=== PATIENT | female | born 1995 | race Caucasian/White ===

== ENCOUNTER 2022-11-14 09:24 | Outpatient (RCR) | payer OTHER, SELFPAY ==
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
[2022-11-14 10:38] VITALS: BP 119/75; PULSE 60
--- NOTE | 2022-11-14 11:10 | BH.SGPN.GN ---
Behaviors/Verbalizations/Mental Status: []Pt alert and oriented, casually dressed and groomed. Eye contact good. Motor activity restless. Speech within normal limits. Affect congruent-tearful. mood depressed. Thoughts linear, logical, no signs of hallucinations or delusions. Client Response/Progress/Benefit: v[]Pt responded well to session, contributing to discussion when prompted, and attentive throughout discussion. Pt identified a negative thought that has kept them stuck. Pt's thought was I can?t do anything right. Pt reported when they think this way, pt gets upset, cries, shuts down, moves slower, and does not try. Pt worked to reframe the thought by finding more rational, realistic ways to look at the thoughts and then processed within group setting. Pt reframed the thought to ?I can do something small instead of the big thing.? Pt was tearful throughout session, but pt was receptive to feedback and encouragement from peers. ?Pt appeared to benefit from practicing challenging negative thinking. Pt will continue IOP tx to prevent decompensation, increase distress tolerance skills, and maintain safety. ? Narrative Note: []
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
--- NOTE | 2022-11-14 13:04 | BH.DR.ITP ---
Initial Treatment Plan Patient Information Visit Information: ADMISSION DATE: EXPECTED LOS: 4-6 weeks Problems/Symptoms Problem #1:: Depression Symptom:: Sadness, hopelessness, worthlessness, anhedonia, biological disruption of weight and appetite, low energy, decreased concentration, passive thoughts of , passive suicidal ideation Problem #2:: Anxiety Symptom:: Worry, rumination, panic attacks
--- NOTE | 2022-11-14 13:38 | BH.COMM_ITS ---
Communication Note - Communication with Client Communication Note: Met with patient to complete initial paperwork. Complete [place] Suicide Screening. Moderate risk. Denies active SI, plan, or intent today. reports having SI within the last month, but no plan or intent within the last month. Pt reports history of one previous suicide attempt 8-9 years ago. Pt's protective factor is her family. Reports ability to maintain safety today. Future-oriented. Consulted with Dr. Mcgovern with plan to admit to IOP level of care with dx F33.2
--- NOTE | 2022-11-16 09:05 | BH.SGPN.GN ---
Behaviors/Verbalizations/Mental Status: [] Eye contact is good. Motor activity is appropriate. Appearance is casual. Speech is pressured. Mood is anxious. Affect is congruent. Thoughts are linear and logical. No evidence of psychosis. Reviewed daily check in sheet and pt reports 1/5 for suicidal ideations and 0/5 for intent. This is reduction from previous day. Client Response/Progress/Benefit: [] Pt was an active participant in group discussion. Attentive. Daily symptom tracker notes 4/5 for anxiety, 2/5 for depression, and 3/5 for irritability. Emotion for today is worried. Mental health wins included accompishing tasks and responsibilities. Elaborated on why this was a mental health win for her. She shared the impact that her anxiety, worry, and fear have on her and her relationships. Shared significant worry and anxiety about a friend driving to [place] and how this consumed her for several days. She was able to communicate her anxiety and friend agreed to postpone the trip. She was tearful and visibly shaking while discussin her anxiety and fear. Group provided support and encouragement which was beneficial. Will continue in IOP to prevent decompensation, stabilize mood, and increase healthy coping. Narrative Note: []
--- NOTE | 2022-11-16 11:10 | BH.SGPN.GN ---
Behaviors/Verbalizations/Mental Status: []Client alert and oriented, casually dressed and groomed. Eye contact good. Motor activity appropriate. Speech within normal limits. Affect congruent to topics being discussed, mood euthymic. Thoughts linear, logical, no signs of hallucinations or delusions. Client Response/Progress/Benefit: []Client an active participant, encouraging peers and contributed as group brainstormed ideas on how to cope with internal barriers that keep clients stuck from moving towards goals. Able to identify barriers to desired reality. Worked with group to identify strategies to help overcome barriers. Identified personal barriers to desired reality. Client wants to work on overcoming the barrier of forgetfulness by starting to journal. Benefited from group by identifying obstacles and solutions to desired reality. Client to continue IOP to increase use of healthy coping, challenge negative thoughts, and prevent decompensation.
--- NOTE | 2022-11-16 11:34 | BH.MDN ---
Multi-Disciplinary Note - Note 45-min Individual Time Started:: 10:20 Date: 11/16/22 Purpose of session/treatment goals addressed:: To gather information on pt's current stressors, symptoms, triggers, and tx goals. Another goal was to build rapport and provide emotional support. Eye Contact:: Fair Motor Activity:: Restless Appearance:: Casual Speech:: Tangential, Soft Mood:: Anxious, Depressed Affect:: Congruent - tearful throughout session Thoughts:: Circular, No evidence of hallucinations/delusions noted Staff Interventions:: thought challenging, psychoeducation on: - cognitive triangle and behavioral activation., CBT techniques, rapport building, strengths perspective, goal setting Client Response:: Pt responded well to session, open to meeting with therapist. Pt reports she has been struggling for a long time and feels like I should be better by now. Pt feels that group has been a positive experience so far, so pt is trying to stay hopeful that she could make progress. Pt shared she has very negative thoughts of herself and has not been enjoying much of anything. Pt stated her memory is poor and she often forgets what she is going to say. Pt reported this happened in process group today and then pt was self-critical. Pt receptive to therapist utilizing self-compassion techniques as well as helping pt identify strategies to help pt in process group. Pt identified treatment goals which included I want to be happy doing old things I used to enjoy. This things include taking pictures, making things, baking, and taking her dog for a walk. 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 Pt willing to write out a few goals on a daily habit tracker to work on over the weekend. Pt also receptive to psychoeducation on behavioral activation. Risks/Concerns:: Pt reports daily, passive SI that pt is able to control. Pt reports she would not kill herself because of her family. Progress Toward Goals/Plan:: Pt started IOP tx this week, so no progress to document. Pt presents depressed and tearful, but receptive to tx. Pt currently endorses crying spells, ruminations, a depressed mood, anhedonia, issues with memory, lack of concentration, passive SI, lack of energy and motivation, hopelessness, and worthlessness. Pt is receptive to goal setting and completed the daily habit tracker. Pt is currently on leave from work. Pt will continue IOP tx to prevent decompensation, increase healthy coping skills, and combat distorted thinking patterns. Time Stopped:: 11:05
--- NOTE | 2022-11-16 11:35 | BH.MTP_ITS ---
[facility] - Patient Information Program Physician:: Dr Yesika Alvarez Primary Therapist:: Gale LEON - Psychiatric Diagnoses Psychiatric Diagnoses:: Major depressive disorder, recurrent, severe without psychosis F 33.2; Borderline personality disorder; Generalized anxiety disorder; Marijuana use disorder; Alcohol use disorder Diagnosis Code(s):: F 33.2 - Estimated LOS Estimated LOS (in weeks):: 6 Problem/Goal #1 - Problem/Goal #1 Stated Goal:: Pt will reduce depressive symptoms, hopelessness, anhedonia, and passive SI due to Major Depressive Disorder through [facility] Services. Description of Barriers: Pt and her partner recently broke up and they were together for almost three years. Pt still lives with her partner which is a stressor. Pt has a strong family history of depression and her father has attempted suicide twice and this was traumatic for pt. Pt admits to utilizing alcohol to cope with stress/symptoms and pt also smokes marijuana daily, but has a medical card. Pt endorses very negative core beliefs of self. Functional Impact: Pt is a 27-year-old female with a history of MDD, HILLARY, and PTSD who was referred by her insurance company to [facility] for worsening depression and anxiety. Pt has had to go on FMLA from work due to her symptoms interfering with her functioning. Pt reports her symptoms are also impacting her ability to complete ADLs. Pt endorses a depressed mood, crying spells, poor concentration, issues with memory, lack of motivation, anhedonia, lack of energy, and passive SI. Pt reports limited benefit from outpatient counseling alone due to hopelessness and worthlessness. Goal Relevant Strengths/Supports: Pt is connected with outpatient psychiatry and counseling. Pt's dog is a protective factor and helps pt cope. Pt is employed and seems to like her job. - Objectives Objective #1 Stated Objective: Pt will learn and utilize 2-3 healthy coping strategies to better manage depressive symptoms and reduce DSM-5 symptoms for depression. Interventions: Through group and individual sessions, therapist will help pt identify triggers and warning signs of depression and emotional dysregulation including emotional, physical, and behavioral changes. Therapist will teach pt various coping skills to manage her symptoms. Therapist will use cognitive restructuring techniques and help pt gain awareness of negative thoughts that reinforce depressive cycles. Therapist will help pt incorporate mindfulness and emotional regulation skills when dealing with difficult situations. Discharge Criteria: Pt will have met this goal when she can report learning and using at least 2 coping skills to manage depressive symptoms and her DSM-5 scores for depression have decreased. Target Date: 12/26/22 Review Date: 12/05/22 Status: open Objective #2 Stated Objective: Pt will reduce anhedonia and improve mood through setting and accomplishing 2-3 behavioral activation goals a week. Interventions: Through group and individual sessions, pt will learn how to set small SMART goals to promote mood stability. Therapist will provide education on maintenance cycles for depression and help pt learn how to break unhealthy maintenance cycles Discharge Criteria: Pt will have accomplished this goal when can report accomplishing at least two behavioral activation goal a week. Target Date: 12/26/22 Review Date: 12/05/22 Status: open Problem/Goal #2 - Problem/Goal #2 Stated Goal:: Will reduce panic and anxiety through increasing emotional regulation and distress tolerance skills Description of Barriers: Pt and her partner recently broke up and they were together for almost three years. Pt still lives with her partner which is a stressor. Pt has a strong family history of depression and her father has attempted suicide twice and this was traumatic for pt. Pt admits to utilizing al cohol to cope with stress/symptoms and pt also smokes marijuana daily, but has a medical card. Pt endorses very negative core beliefs of self. Functional Impact: Pt is a 27-year-old female with a history of MDD, HILLARY, and PTSD who was referred by her insurance company to [facility] for worsening depression and anxiety. Pt has had to go on FMLA from work due to her symptoms interfering with her functioning. Pt reports her symptoms are also impacting her ability to complete ADLs. Pt endorses a depressed mood, crying spells, poor concentration, issues with memory, lack of motivation, anhedonia, lack of energy, and passive SI. Pt reports limited benefit from outpatient counseling alone due to hopelessness and worthlessness. Goal Relevant Strengths/Supports: Pt is connected with outpatient psychiatry and counseling. Pt's dog is a protective factor and helps pt cope. Pt is employed and seems to like her job. - Objectives Objective #1 Stated Objective: Pt will identify 2-3 anxiety triggers and 2 coping skills to use when feeling anxious to manage anxiety as shown by reducing DSM-5 scores for anxiety Interventions: Therapist will provide education on anxiety, avoidance behaviors, and maintenance cycles. Therapist will help pt explore personal symptoms and warning signs of anxiety. Therapist will teach pt coping skills to improve emotional regulation, mindfulness, and distress tolerance to help pt cope with anxiety in the moment. Discharge Criteria: Pt will have accomplished this goal when she can identify at least 2 triggers and report using 2 coping skills to manage anxiety. Additionally, pt will have accomplished this goal AEB reduction of DSM-5 scores for anxiety. Target Date: 12/26/22 Review Date: 12/05/22 Status: open Objective #2 Stated Objective: pt will identify 2-3 cognitive distortions that lead to rumination and learn 2-3 ways to manage these thoughts to better manage anxiety. Interventions: Therapist will provide education on the most common cognitive distortions and teach pt the connection between thoughts, emotions, and feelings. Therapist will assist pt in identifying, challenging, and replacing dysfunctional thoughts with positive, more realistic thoughts. Therapist will use CBT and DBT techniques to help pt gain awareness of thinking errors and learn how to more effectively handle negative thoughts. Discharge Criteria: Pt will have accomplished this goal when can identify at least 2 cognitive distortions and at least 2 coping skills to manage negative thoughts. Target Date: 12/26/22 Review Date: 12/05/22 Status: open
--- NOTE | 2022-11-16 11:35 | BH.PSA_ITS ---
Suicide Assessment Treatment Plan Recommendations
--- NOTE | 2022-11-16 11:35 | BH.PSA ---
Suicide Assessment Treatment Plan Recommendations
--- NOTE | 2022-11-19 09:05 | BH.SGPN.GN ---
Behaviors/Verbalizations/Mental Status: [] Eye contact poor. Motor activity appropriate. Speech within normal limits. Affect constricted, mood anxious and euthymic. Thoughts linear, logical, no signs of hallucinations or delusions. Reviewed client?s symptom tracker, no risk for suicidal ideation, plan, or intent as of 11/19/2022. Client Response/Progress/Benefit: [] Client responded well to session, attentive and willing to process with group. Identified current mental health wins as going out with friends this weekend and getting social needs met. Client described herself as feeling very stressed due to having car issues and not knowing how she is going to get to places she needs to get too including IOP program. Discussed frustration with friends as well. Client appeared to benefit from group support and encouragement, client was very encouraging towards other group members well with providing input. Recommended continued IOP tx to continue to increase overall functioning, promote mood stability, as well as prevent decompensation. Narrative Note: []
--- NOTE | 2022-11-19 10:10 | BH.SGPN.GN ---
Behaviors/Verbalizations/Mental Status: [] Eye contact is good. Motor activity is appropriate. Appearance is casual. Speech is Appropriate. Mood is anxious. Affect is congurent. Thoughts are linear and logical. No evidence of psychosis. Client Response/Progress/Benefit: [] Pt was an active participant in group discussion. Attentive during psychoeducation on fixed mindset. Participated during interactive discussions in which group worked together to define 'fixed mindset'. Descriptors identified included; only one way of seeing things, absolute thinking, not compromising, and believing that nothing could change. Participated in further discussion on the negatives that result from a 'fixed' mindset which are; emotional dysregulation, decreased confidence in oneself, feeling 'stuck', feelings of worthlessness, hopelessness, and 'giving up'. Benefited from increased understanding of 'fixed' mindset and its impact on mental health. Will continue in IOP to maintain safety, prevent decompensation, increase healthy coping skills, and to improve functioning to return to work. Narrative Note: []
--- NOTE | 2022-11-19 11:10 | BH.SGPN.GN ---
Behaviors/Verbalizations/Mental Status: []Pt alert and oriented, neatly dressed and groomed. Eye contact good. Motor activity appropriate. Speech within normal limits. Affect congruent-tearful at times, mood depressed. Thoughts linear, logical, no signs of hallucinations or delusions. Client Response/Progress/Benefit: []Pt engaged during activity and discussion AEB providing some input, connecting with peers, as well as taking notes throughout. Pt did well to engage as group worked on identifying characteristics and benefits of adopting a growth mindset. Worked with fellow participants in reframing the example fixed thoughts into growth mindset thoughts. Reframed personal fixed thought of ?something bad is always going to happen? with growth mindset thought of ?sometimes good things seem bad and occasionally good things happen.? Benefitted from discussing benefits of growth mindset and brainstorming strategies for prompting growth-mindset. Pt shared her core beliefs make it hard for pt to reframe her fixed thoughts. Pt did well in small group to challenge own thoughts and help peers. Pt will continue IOP tx to prevent decompensation, combat distortions, and improve daily functioning. ?? Narrative Note: []
--- NOTE | 2022-11-20 09:05 | BH.SGPN.GN ---
Behaviors/Verbalizations/Mental Status: []Pt alert and oriented, casually dressed and groomed. Eye contact good. Motor activity appropriate. Speech within normal limits. Affect congruent, mood depressed. Thoughts linear, logical, no signs of hallucinations or delusions. Reviewed pt?s symptom tracker, no risk for suicidal ideation, plan, or intent as of 11/20/22 Client Response/Progress/Benefit: []Pt responded well to session, receptive to group feedback. Pt reports feeling spacey and exhausted this morning as she continues to endorse severe depressive. Pt stated she is anxious about what will happen with work as pt's short-term disability ends soon. Pt plans to talk to her sales and marketing representative soon which should help reduce some anxiety. Pt's mental health wins today include going for a walk with her dog and getting to IOP early which helped pt feel less stressed. Pt appeared to benefit from connecting with peers and gaining supportive feedback. Pt will continue IOP tx to prevent further decompensation, increase motivation, and reduce negative thinking patterns. Narrative Note: []
--- NOTE | 2022-11-20 10:12 | BH.SGPN.GN ---
Behaviors/Verbalizations/Mental Status: []Client alert and oriented, casually dressed and groomed. Eye contact good. Motor activity appropriate. Speech within normal limits. Affect congruent, mood anxious and dysthymic. Thoughts linear, logical, no signs of hallucinations or delusions. Client Response/Progress/Benefit: []Client receptive of session, actively engaged throughout AEB taking notes and provided input and examples to discussion. Appeared to connect with group topic of cognitive distortions and the impact of thought patterns on mental health, coping behaviors, and relationships. Reflected that she personally tends to struggle with distortions of all or nothing thinking and mind reading. Noting this has resulted in unrealistic expectations of self and others in the past. Client appeared to benefit from gaining insight on distorted thinking patterns and how this impacts overall mental health. Progress noted in client report of improved insight and ability to combat distortions with alternative positive thoughts. Will continue IOP tx to reduce anxiety and depression, continue to promote healthy decision making, and increase overall functioning. Narrative Note: []
--- NOTE | 2022-11-20 11:15 | BH.SGPN.GN ---
Behaviors/Verbalizations/Mental Status: []Eye contact is fair to good. Motor activity is appropriate. Appearance is casual. Speech is WNL. Mood is anxious and dysthymic. Affect is congruent. Thoughts are linear and logical. No evidence of psychosis. Client Response/Progress/Benefit: []Pt engaged participant AEB providing input during small group discussion and engaging in activity. Activity involved working with peers to answer questions related to psychoeducation on cognitive distortions and practicing reframing distorted thoughts. Pt collaborated with the group to determine the answers. Identified cognitive distortions struggles with the most as all or nothing thinking, jumping to conclusions, and personalization. Able to connect impact distortions has on her mental health. Benefited from rehearsing ways to challenge/reframe cognitive distortions and by gaining increased insight into examples/definitions of 10 most common cognitive distortions. Will continue in IOP to increase healthy coping, improve emotion regulation, and prevent decompensation.
--- NOTE | 2022-11-23 11:32 | BH.COMM ---
Communication Note - Communication with Client Communication Note: Pt did not get to meet individually with her IOP therapist this week due to leaving early on 11/21/22 (illness) and not being able to come any days later in the week. Pt did have outpatient psychiatry and counseling appointments yesterday, 11/22/22. Pt is scheduled to attend IOP on 11/27/22.
--- NOTE | 2022-11-27 09:05 | BH.SGPN.GN ---
Behaviors/Verbalizations/Mental Status: []Eye contact good, casually dressed, motor activity appropriate, speech normal rate and tone, mood depressed and anxious, congruent affect, thoughts linear and intact, no evidence of delusions or hallucinations. Reviewed pt's symptom tracker, pt suicidal ideation within established baseline, denies any plan or intent. Future oriented. Client Response/Progress/Benefit: []Pt responded well to session, attentive and willing to process with group. Identified current mental health wins as challenging themself to use opposite action and follow through with eating three meals a day, despite anxiety impacting pt appetite. Additional win noted as making the decision to revisit an old friendship. Shared feeling excited about the possibility of expanding her support network, but anxious about it as well. Identified this as her stressor and appeared to benefit from supportive feedback and suggestions for discussing boundaries and expectations provided by the group. Pt appeared to benefit from group support and encouragement. Continues to display progress in use of thought challenging and willingness to learn new coping skills. Recommended continued IOP tx to continue to improve anxiety management, promote mood stability, as well as prevent decompensation. Narrative Note: []
--- NOTE | 2022-11-27 10:10 | BH.SGPN.GN ---
Behaviors/Verbalizations/Mental Status: []Pt alert and oriented, neatly dressed and groomed. Eye contact good. Motor activity appropriate. Speech within normal limits. Affect congruent, mood anxious and depressed. Thoughts linear, logical, no signs of hallucinations or delusions. Client Response/Progress/Benefit: []Pt was an active participant in group discussions and activities. Attentive during psychoeducation. Pt engaged during interactive discussion in which the group defined self-care and discussed its benefits. ?Worked with peers in a small group to identify myths related to self-care which included; Self-care is expensive, self-care is selfish, not everyone deserves self-care, self-care means a person is weak, and self-care takes up too much time. Pt shared she is good with some areas of self-care, but connected with pers that there are a lot of barriers keeping her from self-care. Pt participated in small groups where they worked to bust these self-care myths. Benefited from increased awareness of self-care, its benefits, and the consequences of not utilizing self-care strategies. Will continue IOP tx to promote mood stability, reduce negative self-talk, and improve daily functioning. ?? Narrative Note: []
--- NOTE | 2022-11-27 11:10 | BH.SGPN.GN ---
Behaviors/Verbalizations/Mental Status: []Pt alert and oriented, casually dressed and groomed. Eye contact good. Motor activity appropriate. Speech within normal limits. Affect constricted, mood dysthymic. Thoughts linear, logical, no signs of hallucinations or delusions. Client Response/Progress/Benefit: []Pt engaged participant AEB completing self-assessment worksheet and providing input throughout discussion. Participated in group discussion on the various areas of self-care. Pt completed worksheet identifying current self-care practices and what self-care activities pt wants to start using. Pt selected physical self-care to begin practicing more consistently. Pt plans to do this by starting to stretch and exercise more throughout her week. Appeared to benefit from completing the self-care evaluation and gaining insights into current self-care practices, as well as identifying areas in which pt would like to improve upon.?Pt is to continue IOP to continue use of skills, challenge distorted thoughts, and prevent decompensation.
--- NOTE | 2022-11-27 13:59 | BH.MDN ---
Multi-Disciplinary Note - Note 45-min Individual Time Started:: 12:15 Date: 11/27/22 Purpose of session/treatment goals addressed:: To work on goal #1 of pt's tx plan. Eye Contact:: Good Motor Activity:: Restless Appearance:: Casual Speech:: Soft Mood:: Anxious, Depressed Affect:: Flat - tearful Thoughts:: Circular, No evidence of hallucinations/delusions noted Staff Interventions:: thought challenging, psychoeducation on: - behavioral activation, CBT techniques, mindfulness skills - Reviewed calming skills, strengths perspective, goal setting Client Response:: Pt responded well to session, open to meeting with therapist. Pt reports she is not doing well as pt had a lot of stressors over the weekend. Pt drove to [place] with her ex-boyfriend/roommate and the drive itself was stressful, but pt was also anxious about being around his family. Pt shared she practiced calming coping skills while she was there as pt felt overwhelmed most of the time. Pt stated his family is kind and to pt, but pt struggled to accept this due to depressive symptoms. Pt shared she has accomplished some of her goals like doing laundry and she has been stretching. Pt is receptive to identifying at least one thing she deserves credit for a day as pt struggles with minimizing and negative self-talk. Pt will also take her dog for a walk daily and continue eating at least once a day. Pt shared one of her biggest stressors today is that one of her old friends has reached back out to pt, but pt feels that this friend does not value pt or put energy into their relationship. Pt has set firm boundaries in the past, but pt offered to spend time with them today and they told me to hang out with my dog. Pt was tearful and appeared to benefit from processing and getting emotional release. Pt plans to talk with another close friend today and take her dog on a walk to cope. Pt also used to enjoy taking pictures and pt set a goal to try and take one picture a day. Risks/Concerns:: Pt reports 2/5 for thoughts of suicide and 0/5 for intent today. Pt denies any active SI, plan, or intent. Pt is future oriented and her dog is her protective factor. Progress Toward Goals/Plan:: Pt's progress is mild as pt reports her symptoms have not reduced much since admission. However, pt does report benefitting from connecting with peers and gaining skills in IOP. Pt missed a day last week, but overall her attendance is good. Pt continues to endorse crying spells, hopelessness, worthlessness, ruminations, lack of motivation, anhedonia, and passive SI. Pt is receptive to goal setting and she continues to work on her daily habit tracker. Pt will continue IOP tx to prevent decompensation, improve daily functioning, and increase self-compassion. Time Stopped:: 13:00
--- NOTE | 2022-11-28 09:05 | BH.SGPN.GN ---
Behaviors/Verbalizations/Mental Status: []Eye contact good, casually dressed, motor activity appropriate, speech normal rate and tone, mood depressed and anxious, congruent affect, thoughts linear and intact, no evidence of delusions or hallucinations. Reviewed pt's symptom tracker, pt suicidal ideation within established baseline, denies any plan or intent. Future oriented. Client Response/Progress/Benefit: []Pt responded well to session, attentive and willing to process with group. Identified current mental health wins as spending time with a friend yesterday. Shared this helped to improve her overall mood. Additional win noted as continuing to work through a stressor with another friend. However, noted this is also a stressor as pt has been struggling with doubting that her friend is not going to change their mind and end the relationship or cardiac specialist pt. Responded well to and appeared to benefit from supportive feedback and suggestions provided by the group. Progress in reduced isolation and improved mood. Recommended continued IOP tx to continue to improve self-care, promote mood stability, as well as prevent decompensation. Narrative Note: []
--- NOTE | 2022-11-28 10:10 | BH.SGPN.GN ---
Behaviors/Verbalizations/Mental Status: [] Client alert and oriented, casually dressed and groomed. Eye contact good. Motor activity restless. Speech within normal limits. Affect constricted, mood euthymic. Thoughts linear, logical, no signs of hallucinations or delusions. Client Response/Progress/Benefit: [] Client responded well to session AEB taking notes throughout and listening attentively to others. Client was attentive throughout group activity discussing famous individuals and how they overcame failure to be successful. Client helped group identify how fear of failure can impact mental health and relationships. Client discussed how opinions of others can shape how we view failure. Group together identified how fear of failure leads to over-obsessing, not trying, and lack of confidence. Client participated in experiential activity, working with group members to problem solve. Client was encouraging to group members throughout activity. Appeared to benefit from increased knowledge of fear of failure. Will continue IOP tx to improve self care, reduce distorted thinking patterns, and prevent decompensation. Narrative Note: []
--- NOTE | 2022-11-28 11:10 | BH.SGPN.GN ---
Behaviors/Verbalizations/Mental Status: [] Client alert and oriented, casually dressed and groomed. Eye contact good. Motor activity restless. Speech within normal limits. Affect congruent, mood euthymic. Thoughts linear, logical, no signs of hallucinations or delusions. Client Response/Progress/Benefit: [] Client responded well to session, engaged in the experiential activity and attentive throughout group processing. Client reported fear of failure has kept client from good relationships and going to school. Client completed fear of failure worksheet and was able to identify thoughts and behaviors that reinforce personal fear of failure including negative thought patterns, continual loss, and believing the negative things others say about them. Client participated in small group discussion regarding strategies to overcome fear of failure. Identified wanting to work on asking for help and setting smart goals. Appeared to benefit from increased knowledge of strategies to combat fear of failure and gaining self-awareness. Client will continue IOP tx to promote gains in reduced depressive symptoms and to reduce anxiety and avoidance. Narrative Note: []
--- NOTE | 2022-11-30 09:00 | BH.SGPN.GN ---
Behaviors/Verbalizations/Mental Status: []Pt alert and oriented, casually dressed and groomed. Eye contact fair. Motor activity appropriate. Speech within normal limits. Affect flat-tearful, mood anxious and dysthymic. Thoughts linear, logical, no signs of hallucinations or delusions. Reviewed pt?s symptom tracker, no risk for suicidal ideation, plan, or intent as of 11/30/22 Client Response/Progress/Benefit: []Pt responded well to session, attentive and receptive to feedback. Pt reports feeling panicked and irritable this morning as pt's FMLA is about to run out and pt does not feel ready to return to work. Discussed what pt can do to help with this such as contacting her policy services representative. Pt shared her wins today include going for two walks this week, spending time outside, and being with her dog and a friend. Pt's mood continues to be depressed and pt report her mind won't shut off. Pt has made limited progress and can benefit from ongoing IOP level of care to prevent further decompensation. Narrative Note: []
--- NOTE | 2022-11-30 10:00 | BH.SGPN.GN ---
Behaviors/Verbalizations/Mental Status: [] Client alert and oriented, neatly dressed and groomed. Eye contact good. Motor activity appropriate. Speech within normal limits. Affect congruent, mood euthymic. Thoughts linear, logical, no signs of hallucinations or delusions. Client Response/Progress/Benefit: [ ] Client responded well to session, attentive during psychoeducation on SMART goals (Specific, Measurable, Achievable, Realistic, and Time-bound) and engaged in group experiential activity. Active participant during interactive discussion with peers in which they worked together to define what a goal is and the benefits of having goals. Group identified benefits as; giving a sense of purpose, improving motivation, and helping reduce negative mental health symptoms. Participated in interactive discussion in which group identified barriers to setting goals and following through with goals. Barriers included not feeling worthy, negative self-talk, time, and cognitive distortions such as all or nothing thinking. Client discussed personal struggle with staying focused on her goals. Benefited from increased awareness of benefits and strategies for goal-setting. Will continue in IOP tx to improve mood stability, reduce negative thinking patterns, and improve daily functioning. Narrative Note: []
--- NOTE | 2022-11-30 11:10 | BH.SGPN.GN ---
Behaviors/Verbalizations/Mental Status: [] Client alert and oriented, casually dressed, appropriately groomed. Eye contact good. Motor activity appropriate. Speech within normal limits. Affect congruent, mood euthymic. Thoughts linear, logical, no signs of hallucinations or delusions. Client Response/Progress/Benefit: [] Client was engaged during discussion and willing to complete the worksheet challenging them to develop a personal SMART goal. Client chose the goal of cleaning kitchen this week. Client stated this will benefit them by helping her feel organized. Client identified barriers which included distraction and time. Identified solutions as asking a friend to help them focus and not spending too much time at other places. Client receptive to identifying solutions for these barriers and willing to begin working on this goal. Benefited from this group by developing a short-term SMART goal related to mental health. Will continue IOP tx to increase healthy coping, improve daily functioning, and increase self care. Narrative Note: []
--- NOTE | 2022-12-03 09:05 | BH.SGPN.GN ---
Behaviors/Verbalizations/Mental Status: [] Eye contact is good. Motor activity is appropriate. Appearance is casual. Speech is Appropriate. Mood is depressed. Affect is congruent. Thoughts are linear and logical. No evidence of psychosis. Reviewed daily check in sheet and pt reports 2/5 for suicidal thoughts and 0/5 for intent. This has been baseline for patient. Client Response/Progress/Benefit: [] Pt was an active participant in group discussion. Attentive. Daily symptom tracker notes 3/5 for depression/anxiety. Reports 2/5 for self-harm urges. Mental health win was I cleaned some this weekend. Tearful throughout her check-in reporting that she had a panic attack while attending a [employer] with her mother. Tearful and share briefly her struggles with intrusive thoughts. The thoughts that led to anxiety revolved around not being safe at the event. She identified the panic, left the setting that was causing the anxiety, went outside to utilize coping skills, and then returned. She views having these intrusive thoughts and panic as a failure. Group attempted to reframe and pointed out the she managed the panic, utilized skills, and returned. Reports being overwhelmed and frustrated with her internal struggles and how these can impact her throughout the weekend. Benefited from group feedback, support, and attempts to reframe/challenge her thoughts. Will continue in IOP to maintain safety, prevent decompensation, and decrease intrusive thoughts to improve functioning. Narrative Note: []
--- NOTE | 2022-12-03 10:20 | BH.SGPN.GN ---
Behaviors/Verbalizations/Mental Status: []Pt alert and oriented, casually dressed and groomed. Eye contact fair. Motor activity appropriate. Speech within normal limits. Affect congruent, mood anxious. Thoughts linear, logical, no signs of hallucinations or delusions. Client Response/Progress/Benefit: []Pt was an active participant AEB contributing to discussion, taking notes, and engaging in group activity. Connected with the topic of pitfalls and listened to group discussion on barriers that prevent from choosing a healthier path to mental wellness. Group worked together to identify examples of personal pitfalls and pt identified theirs as taking on too much, lack of awareness, apathy, and emotion dysregulation.? Pt benefited from group as pt learned to better identify potential barriers to improving mental health symptoms. Pt will continue IOP tx to decrease anxiety, increase healthy coping, and prevent decompensation.
--- NOTE | 2022-12-03 11:20 | BH.SGPN.GN ---
Behaviors/Verbalizations/Mental Status: []Pt alert and oriented, neatly dressed and groomed. Eye contact good. Motor activity appropriate. Speech within normal limits. Affect congruent, mood anxious and depressed. Thoughts linear, logical, no signs of hallucinations or delusions. Client Response/Progress/Benefit: []Pt receptive of session, engaged throughout AEB actively listening and contributing to discussion, as well as taking notes.? Pt participated in the experiential activity and did well to communicate ideas with peers and manage emotions. Pt and group processed how the emotions and perspective of the group after the break positively impacted pt. Group worked together to identify different coping skills to help manage pitfalls. Pt identified pitfalls they struggle with and shared wanting to work on pitfall of all or nothing thinking by breaking down her cleaning tasks and continuing to give herself credit. Benefited from identifying personal pitfalls and strategies to overcome these pitfalls. Pt continues to struggle with intrusive thoughts and negative self-talk. Will continue IOP tx to prevent decompensation, improve distress tolerance, and increase self-compassion. Narrative Note: []
--- NOTE | 2022-12-03 14:05 | BH.MDN ---
Multi-Disciplinary Note - Note 60-min Individual Time Started:: 12:20 Date: 12/03/22 Purpose of session/treatment goals addressed:: To work on goal #2 of pt's tx plan and to review progress/barriers since admission. Eye Contact:: Fair Motor Activity:: Restless Appearance:: Casual Speech:: Tangential, Soft Mood:: Anxious, Dysthymic Affect:: Congruent - tearful throughout session Thoughts:: Racing, Circular, No evidence of hallucinations/delusions noted Staff Interventions:: psychoeducation on: - intrusive thoughts, CBT techniques, mindfulness skills, strengths perspective, reviewed DSM-5, goal setting Client Response:: Pt responded well to session, open to meeting with therapist. Pt shared she continues to feel depressed and anxious, especially with her short-term disability ending. 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 Pt recognizes that she is not ready to return to work as pt continues to experience crying spells, issues with sleep, intrusive thoughts, ruminations, lack of motivation, and suicidal ideations. Pt receptive to learning about intrusive thoughts and pt connected with these. Discussed how pt can began to manage her intrusive thoughts and why thoughts get sticky. Pt learned about Delay, Distract, Decide to reduce safety behaviors and to help pt sit with the uncomfortable instead of immediately act. Also discussed strategies pt could use to help improve concentration and productivity at home. Pt shared she is unable to accomplish tasks because she gets distracted and only does parts of projects. Pt reminded to utilize self-compassion and cater to her strengths. Pt will try a method discussed in session to help her be more productive. Pt encouraged to continue giving herself credit to combat all or nothing thinking patterns. Risks/Concerns:: Pt reports she is having intrusive thoughts more frequently than she originally reported and these are suicidal at times. Pt has intrusive thoughts of what if I just ran into a semi but pt does not want to act on these thoughts. Pt denies any active SI, plan, or intent. Pt reports her family is her protective factor. Progress Toward Goals/Plan:: Pt is making progress towards her tx goals in some areas AEB her DSM-5 reduction in anxiety and anger. However, pt's depression has increased since admission per the DSM-5 and pt continues to struggle with mood instability. Pt also reports having intrusive thoughts that keep her up at night and sometimes are suicidal in nature. Pt is functioning at her baseline and would not be ready to return to work. Pt will continue IOP tx to prevent decompensation, increase distress tolerance skills, and increase application of healthy coping skills. Time Stopped:: 13:15
--- NOTE | 2022-12-03 14:38 | BH.MTP_ITS ---
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 Pt contributes well during individual sessions and actively contributes during group sessions. Pt reports using distraction and grounding skills consistently, however, pt admits she struggles with applying the thought- based coping skills. Status of Current Problems and Symptoms: Pt's stressors and symptoms are ongoing. Pt's biggest stressors right now are returning to work and her living situation. Pt is still experiencing frequent crying spells, passive suicidal ideations, issues with sleep, anhedonia, hopelessness, and intrusive thinking. Pt's functioning at home is slightly improved, but pt is worried about her ability to get ready for work and be productive as her concentration is still poor. Problem #1 Problem Name:: Depression, hopelessness, lack of motivation, crying spells, SI Status of Goals:: Objective 1- not complete. Pt's DSM-5 scores for depression have increased by one point since admission. Pt reports ongoing stressors of work and her living situation are impacting her mood. Pt can identify healthy coping skills, but pt is struggling with implementing thought challenging techni ques. Objective 2-complete with ongoing work encouraged. Pt has accomplished goals with laundry and going for more walks. Team Recommendations:: Treatment tx encourages pt to continue working on this treatment goal as pt continues to experience frequent crying spells, passive SI, hopelessness, and anhedonia. Pt has accomplished some of her goals for cleaning and pt wants to continue working on this. Pt also encouraged to reduce marijuana use. Problem #2 Problem Name:: Anxiety, avoidance, and intrusive thoughts Status of Goals:: Objective 1- in progress. Pt's DMS-5 scores for anxiety have decreased by 38% since admission, but pt's scores for OCD symptoms have not decreased. Pt reports using grounding and distraction coping skills consistently, but pt is struggling with managing her intrusive thoughts. Objective 2- in progress. Pt is learning about managing intrusive thoughts by identifying them and reducing the credit she gives them. Pt is also working on reducing safety behaviors. Team Recommendations:: Treatment tx recommends that pt continue working on this goal as pt reports her intrusive and racing thoughts have not decreased since admission. Pt has been encouraged to work on developing a routine to help with pt's anxiety about returning to work and pt is working on managing her intrusive thoughts. [facility] psychiatrist will meet with pt on 12/19/22 to discuss alternative medications and pt is encouraged to reduce her marijuana use.
--- NOTE | 2022-12-04 09:05 | BH.SGPN.GN ---
Behaviors/Verbalizations/Mental Status: []Pt alert and oriented, casually dressed and groomed. Eye contact good. Motor activity appropriate. Speech within normal limits. Affect congruent-tearful, mood depressed. Thoughts linear, logical, no signs of hallucinations or delusions. Reviewed pt?s symptom tracker, no risk for suicidal ideation, plan, or intent as of 12/04/22 Client Response/Progress/Benefit: []Pt responded well to session, receptive to feedback from peers. Pt reports feeling stressed and tired this morning. Pt stated her mood has not really improved and pt continues to struggle with constant anxiety and negative thinking. Pt shared she is sending a letter to to extend her FMLA. Pt shared her wins today include going for a walk yesterday with her dog and not engaging in safety behaviors. Pt appeared to benefit from group feedback and encouragement. Pt will continue IOP tx to prevent decompensation, improve daily functioning, and reduce negative thinking patterns. Narrative Note: []
--- NOTE | 2022-12-04 10:15 | BH.SGPN.GN ---
Behaviors/Verbalizations/Mental Status: []Client alert and oriented, casually dressed and groomed. Eye contact good. Motor activity appropriate. Speech within normal limits. Affect congruent to topics being discussed, mood anxious. Thoughts linear, logical, no signs of hallucinations or delusions. Client Response/Progress/Benefit: []Pt engaged in session AEB listening attentively to others and providing insight to group discussion. Pt engaged in activity, able to connect how it can be uncomfortable when things are out of one?s own control. Pt worked with group to identify what things in life can be hard to accept. Group identified things hard to accept as: of a loved one, body image, loss of relationship, mental health diagnosis, other?s behaviors, and past decisions. Pt worked on identifying what personal things are hard to accept for herself, sharing things outside her control and other?s behaviors/emotions are things she struggles with accepting. Pt seemed to benefit from increased awareness of importance of acceptance. Pt to continue IOP to improve confidence, increase ability to manage sx of anxiety, and prevent decompensation. Narrative Note: []
--- NOTE | 2022-12-04 11:15 | BH.SGPN.GN ---
Behaviors/Verbalizations/Mental Status: []Pt alert and oriented, casually dressed and groomed. Eye contact fair. Motor activity appropriate. Speech within normal limits. Affect congruent, mood anxious. Thoughts linear, logical, no signs of hallucinations or delusions. Client Response/Progress/Benefit: []Pt responded well to session, engaged and providing examples. Pt engaged as group continued discussion on acceptance and how lack of acceptance can impact mental health. Pt and peers identified what makes acceptance challenging and pt completed a self-reflection exercise on what is hard to accept in pt's life. Pt accepted in discussion to process how not accepting can cause more harm. Group identified strategies to increase acceptance. Pt appeared to benefit from gaining insight and strategies to increase acceptance. Pt will continue IOP tx to increase consistent use of healthy coping, challenge distortions, and prevent decompensation.
--- NOTE | 2022-12-06 09:02 | BH.SGPN.GN ---
Behaviors/Verbalizations/Mental Status: []Eye contact is good. Motor activity is appropriate. Appearance is casual. Speech is Appropriate. Mood is sad. Affect is congruent. Thoughts are linear and logical. No evidence of psychosis. Reviewed daily check in sheet and pt reports SI slightly elevated compared with typical baseline, denies intent or plan. Willing to check-in with individual therapist. Client Response/Progress/Benefit: []Pt responded well to session, attentive and willing to process with group. Pt reports feeling hopeless and stressed this morning despite making several strides towards improving her mental health. Noted struggling to feel she has a ?sparkle? inside anymore. Benefited from validation, supportive feedback, and encouragement of the group. Shared plans to hangout with an old friend which she is looking forward to, as well as setting aside time for self-care via going for a walk this afternoon. Pt will continue IOP tx to prevent decompensation, improve daily functioning, and increase mood stability. Narrative Note: []
--- NOTE | 2022-12-06 10:00 | BH.SGPN.GN ---
Behaviors/Verbalizations/Mental Status: [] Eye contact is good. Motor activity is appropriate. Appearance is casual. Speech is Appropriate. Mood is anxious. Affect is congruent. Thoughts are linear and logical. No evidence of psychosis Client Response/Progress/Benefit: [] Pt was an active participant in group discussions. Attentive during psychoeducation on Conflict Styles. Participated during interactive discussion amongst group members in which they discussed perspective on conflict which was reported to be overall negative (yelling, shutting down, being mean, war, arguments, etc). Therapist challenged pt on reasons we may benefit from conflict and pt along with peers identified several benefits which included; to obtain resolution to an issue, to set boundaries, for one's safety, to improve relationships, to address concerns, and for growth. Engaged with peers during small group assignment in which they identified positives and negatives to each conflict style. Benefited from increased understanding of conflict and ways individuals manage conflict. Will continue in IOP to prevent decompensation, maintain safety, and to decrease intrusive thoughts. Narrative Note: []
--- NOTE | 2022-12-06 11:10 | BH.SGPN.GN ---
Behaviors/Verbalizations/Mental Status: []Pt alert and oriented, neatly dressed and groomed. Eye contact good. Motor activity appropriate. Speech within normal limits. Affect congruent, mood depressed. Thoughts linear, logical, no signs of hallucinations or delusions. Client Response/Progress/Benefit: []Pt engaged in session AEB contributing to discussion and engaging in activity. Pt did well to review current conflict styles of accommodating and competing and their impact on pt?s mental health. Attentive and taking notes during discussion on strategies for more effectively managing conflict in personal life.? Pt participated in activity and did well to talk through choices with peers. Pt given handout on fair fighting rules and identified that they want to work on asking herself why she is upset before discussing issues and expressing her feelings with words. Appeared to benefit from gaining strategies to help pt better manage conflict. Will continue IOP tx to prevent decompensation, improve daily functioning, and increase emotional regulation skills. Narrative Note: []
== END 2022-12-09 23:59 ==
LOC: BHIOP 09:24
PROVIDERS: Referring Provider Psychiatry & Neurology Psychiatry; Visit Provider Psychiatry & Neurology Psychiatry
DX: F33.2 Major depressive disorder, recurrent severe without psychotic features (principal); F60.3 Borderline personality disorder; F41.1 Generalized anxiety disorder; F12.90 Cannabis use, unspecified, uncomplicated; F10.90 Alcohol use, unspecified, uncomplicated
CPT/HCPCS: S9480; 90834; 90837; 90853

== ENCOUNTER 2022-12-10 08:22 | Outpatient (RCR) | payer OTHER, SELFPAY ==
[2022-12-10 00:48] VITALS: BP 119/75; PULSE 60
--- NOTE | 2022-12-10 09:00 | BH.SGPN.GN ---
Behaviors/Verbalizations/Mental Status: []Eye contact is fair to good. Motor activity is appropriate. Appearance is casual. Speech is Appropriate. Mood is depressed and anxious. Affect is congruent. Thoughts are linear and logical. No evidence of psychosis. Reviewed daily check in sheet and reports SI as 2/5, denies plan, or intent as of this date. Will meet with individual therapist today. Client Response/Progress/Benefit: []Pt responded well to session, attentive and willing to process with group. Pt reports feeling ?stressed and anxious? this morning. Shared this is related to not getting enough sleep as she was up late sewing her comforter. Went on to explain this is related to her ongoing stressor which is pt?s ex, whom she lives with, has difficulties in communicating and respecting pt?s boundaries. Pt was receptive of group suggestions on having difficult conversations about boundary setting. Did well to identify current mental health wins which included following through with plans to hangout with a friend yesterday, as well as making plans to do so again today. Benefited from supportive feedback structure of the group. Pt will continue IOP tx to prevent decompensation, improve mood stability, and promote healthy communication and boundary setting skills. Narrative Note: []
--- NOTE | 2022-12-10 10:00 | BH.SGPN.GN ---
Behaviors/Verbalizations/Mental Status: []Pt alert and oriented, casually dressed and groomed. Eye contact good. Motor activity appropriate. Speech within normal limits. Affect congruent, mood anxious. Thoughts linear, logical, no signs of hallucinations or delusions. Client Response/Progress/Benefit: []Pt was an active participant in group discussion and experiential activity. Attentive during psychoeducation on possible causes to developing and maintain unhealthy coping skills which can impact mental health. Pt participated in interactive discussion identifying common unhealthy coping skills. client noted sleeping and impulsive spending as unhealthy skills that can lead to more problems. Able to make connections between experiential activity and importance of having a solid base of internal and external coping skills. Benefited from increased awareness of internal and external coping skills and identifying unhealthy coping skills. Will continue in IOP to decrease intrusive thoughts, increase use of healthy skills, and prevent decompensation.
--- NOTE | 2022-12-10 11:05 | BH.SGPN.GN ---
Behaviors/Verbalizations/Mental Status: []Pt alert and oriented, casually dressed and groomed. Eye contact good. Motor activity appropriate. Speech within normal limits. Affect congruent, mood anxious. Thoughts linear, logical, no signs of hallucinations or delusions Client Response/Progress/Benefit: []Pt responded well to session, taking notes and contributing. Group discussed the different categories of coping skills which included distraction, emotional release, grounding, self-love, and thought challenging.? Pt participated in creating a coping skills ?menu? from the five categories of coping skills. Pt's coping skill menu included: arts and crafts, baking, guided meditation, crying, using affirmations and reminder sticky notes, and asking herself ?would I say this to someone I love?? Appeared to benefit from increasing repertoire of healthy coping skills. Will continue IOP tx to reduce negative thinking patterns, improve daily functioning, and increase motivation. ? Narrative Note: []
--- NOTE | 2022-12-10 14:11 | BH.MDN ---
Multi-Disciplinary Note - Note 60-min Individual Time Started:: 12:10 Date: 12/10/22 Purpose of session/treatment goals addressed:: To work on goal #1 of pt's treatment plan. Another goal was to practice calming skills. Eye Contact:: Good Motor Activity:: Restless - foot tapping throughout session Appearance:: Casual Speech:: Tangential Mood:: Anxious, Dysthymic Affect:: Congruent - tearful Thoughts:: Racing, Circular Staff Interventions:: thought challenging, motivational interviewing, CBT techniques, mindfulness skills - practiced 5-senses in session, strengths perspective, goal setting, taught coping skills - taught pt about 3 components of self-compassion Client Response:: Pt responded well to session, open to meeting with therapist. Pt was tearful throughout session and reported that she is highly anxious about work. Pt is worried about her ability to function and her dog. Pt admits that she struggles to see the [place] and tends to be more of an all or nothing thinker. This leads to pt catastrophizing or not giving herself any credit. It also impacts pt's problem-solving skills and pt feels helpless. Pt receptive to thought challenging and reminding herself of the strengths she has and small progress she has made. Pt shared she is also stressed about getting back into the routine of work and what her dog will do while she is gone. Pt receptive to working on getting ready like she normally would for work on days pt comes to [facility]. Also discussed options for her dog, but pt is not sure what to do yet. Pt learned about the three components of self-compassion to help pt with her negative self-talk and all or nothing thinking. Risks/Concerns:: Pt denies any active suicidal ideations, plan, or intent as of 12/10/22. Pt does have passive suicidal ideations daily, but no intent or plan. Pt is future oriented and reports ability to maintain safety. Progress Toward Goals/Plan:: Pt's progress is mild as pt feels her symptoms of anxiety and depression have not resolved since admission. Pt continues to have frequent crying spells, racing thoughts, hopelessness, negative self-talk, constant worry. Pt struggles to give herself any credit and reports she is not accomplishing much at home. However, pt has reported getting more chores done than she was a few weeks ago. Pt is not ready to return to work and is very anxious about this. Pt is recommended to stay on leave from work for at least two more weeks. Pt will continue IOP tx to promote mood stability, increase emotional regulation skills, and improve daily functioning. Time Stopped:: 13:03
--- NOTE | 2022-12-11 09:05 | BH.SGPN.GN ---
Behaviors/Verbalizations/Mental Status: []Pt alert and oriented, casually dressed and groomed. Eye contact good. Motor activity appropriate. Speech within normal limits. Affect congruent to mood-tearful, mood depressed. Thoughts linear, logical, no signs of hallucinations or delusions. Reviewed pt?s symptom tracker, no risk for suicidal ideation, plan, or intent as of 12/11/22 Client Response/Progress/Benefit: []Pt responded well to session, receptive to group feedback. Pt reports feeling distant and uncomfortable this morning. Pt continues to report mild progress in IOP and she was tearful throughout session. Pt shared she is worried about her friend who recently had a relapse and pt is still worried about her ability to return to work. Pt's wins today include accomplishing her goal of getting ready today and not engaging in compulsive behaviors last night. Group gave pt encouragement and helped her challenge her perspective which pt somewhat benefited from. Pt will continue IOP tx to prevent further decompensation, increase daily functioning, and combat negative thinking patterns. Narrative Note: []
--- NOTE | 2022-12-11 15:33 | BH.MDN ---
Multi-Disciplinary Note - Note 60-min Individual Time Started:: 10:40 Date: 12/11/22 Purpose of session/treatment goals addressed:: To work on goal #1 of pt's tx plan. Another goal was to discuss returning to work. Eye Contact:: Fair Motor Activity:: Restless Appearance:: Neat, Casual Speech:: Appropriate Mood:: Anxious, Depressed Affect:: Flat - tearful Thoughts:: Racing, Circular, No evidence of hallucinations/delusions noted Staff Interventions:: thought challenging, motivational interviewing, CBT techniques, mindfulness skills, discharge planning, strengths perspective, goal setting, taught coping skills - self-compassion to help combat distortions and negative core beliefs. Client Response:: Pt responded well to session, open to meeting with therapist. Met with pt yesterday, so pt did not report many changes. Pt continues to struggle with worry about returning to work, but pt is reaching out to HR to extend her leave. Pt is tearful, sharing how she is not ready to return to work and does not feel better. Pt struggles with giving herself credit and pt acknowledges that her all or nothing thinking keeps pt stuck. Pt also feels that her medications are not helping and therapist will request pt be seen by Dr. Alvarez next week. Pt is still smoking marijuana daily which could impact the effectiveness of pt's medications. Pt has reduced her use since admission which is positive. Pt followed through with her goal of getting ready today like she would for going to work. Pt stated it was stressful, but pt can also see the benefits of getting back into her old routine. Reviewed self-compassion and pt stated it will be hard to believe herself when she tries to be kind to herself. Pt reminded that she does not have to be perfect and that just catching her negative self-talk and trying to think differently is a positive step. Pt's goal is to continue working on increasing self-care by baking and taking pictures. Pt will also continue working on her goal of getting ready in the mornings to help pt transition back to her work routine. Risks/Concerns:: Pt denies any active suicidal ideations, plan, or intent as of 12/11/22. Pt does have passive suicidal ideations daily, but no intent or plan. Pt is future oriented and reports ability to maintain safety. Pt is concerned that her medications are not working which reinforces hopelessness. Progress Toward Goals/Plan:: No significant changes since yesterday's session. Pt's progress is mild as pt feels her symptoms of anxiety and depression have not resolved since admission. Pt continues to have frequent crying spells, racing thoughts, hopelessness, negative self-talk, constant worry. Pt is recommended to stay on leave from work for at least two more weeks. Pt will continue IOP tx to promote mood stability, increase emotional regulation skills, and improve daily functioning. Time Stopped:: 11:40
--- NOTE | 2022-12-14 09:05 | BH.SGPN.GN ---
Behaviors/Verbalizations/Mental Status: [] Eye contact is good. Motor activity is restless. Appearance is casual. Speech is Appropriate. Mood is anxious/depressed. Affect is congruent. Thoughts are linear and logical. No evidence of psychosis. Reviewed daily check in sheet and pt reports 3/5 for suicidal thoughts and 0/5 for intent. This is a point higher than baseline. Will meet with pt this afternoon Client Response/Progress/Benefit: [] Pt participated in group discussions on blame and its role in mental health. Attentive. Engaged with peers offering support and feedback. Daily symptom tracker notes 1/5 for depression, 3/5 for anxiety, and 2/5 for self-harm urges. Emotion for today is ?stressed?. Shared she is ?unsure of her future?. She shared several stressors and ruminations. Also shared negative automatic thoughts and psychosocial stressors. Primary stressor is living situation with her ex-bf. Often feels stuck. Struggling to make a decision regarding moving out or staying. ? I know it would most likely be beneficial to me if I wasn?t there?. Unable to make decisions due to overthinking and being paralyzed. Tearful throughout the check in. Group was supportive and attempted to provide feedback. Will continue in IOP to maintain safety, decreased intrusive thoughts, and to improve functioning. Narrative Note: []
--- NOTE | 2022-12-14 10:10 | BH.SGPN.GN ---
Behaviors/Verbalizations/Mental Status: [] Client alert and oriented, casually dressed and groomed. Eye contact good. Motor activity appropriate. Speech within normal limits. Affect constricted, mood anxious . Thoughts linear, logical, no signs of hallucinations or delusions. Client Response/Progress/Benefit: [] Client connected with topic of Anxiety and participated throughout, providing input and taking notes. Attentive during psychoeducation on different anxiety disorders and participated throughout interactive discussion defining anxiety and identifying cognitive and physical symptoms of anxiety along with safety behaviors. Common cognitive symptoms identified by group included: ?thoughts of dread?, ?mind reading, and fortune telling. Group identified common physical symptoms such as nausea, shakiness, and tightness in chest. Client personally identified that they become unfocused and experiences headaches and tightness in chest when experiencing anxiety. Client identified common unhelpful thoughts they have including I am not good enough. Benefited from increased awareness and insight on anxiety and its impact. Plan is to continue in IOP to challenge and replace negative thought patterns, increase consistency of healthy coping, and prevent decompensation. Narrative Note: [] Narrative Note: []
--- NOTE | 2022-12-14 11:20 | BH.SGPN.GN ---
Behaviors/Verbalizations/Mental Status: [] Client alert and oriented,casually dressed and groomed. Eye contact good. Motor activity appropriate. Speech within normal limits. Affect constricted, mood anxious. Thoughts linear, logical, no signs of hallucinations or delusions. Client Response/Progress/Benefit: [] Client was an active participant in group discussion AEB providing contributions throughout group and listening attentively to others. Attentive during psychoeducation on mindfulness and ways to utilize mindfulness techniques to improve anxiety management. The group together practiced guided meditation and 5 senses technique during session. Engaged and attentive during group practicing of skills and discussing their benefit. Appeared to benefit from practicing in the moment coping skills and increasing repertoire of anxiety management skills. Client selected mindfulness menu of aromatherapy, positive self talk, and guided meditation. Client will continue IOP tx to promote continued use of healthy coping skills, challenge and replace thinking patterns that perpetuate anxiety, and prevent decompensation. Narrative Note: []
--- NOTE | 2022-12-14 14:52 | BH.MDN ---
Multi-Disciplinary Note - Note 60-min Individual Time Started:: 12:20 Date: 12/14/22 Purpose of session/treatment goals addressed:: Reviewed pt's daily symptom tracker which noted a point increase in baseline scores regarding suicidal thoughts. Met with pt to complete a risk assessment. Eye Contact:: Fair Motor Activity:: Restless Appearance:: Casual Speech:: Appropriate Mood:: Anxious, Depressed Affect:: Congruent Thoughts:: Linear, Logical, No evidence of hallucinations/delusions noted Staff Interventions:: completed risk assessment / safety planning, goal setting Client Response:: Pt shared that she had a very challenging day yesterday. She currently lives with her ex-bf which has led to increased tension, conflict, boundary issues (sleep in the same room), and overall awkwardness. Shared several events and interactions that have been impacting her mental health and overall functioning. Feels trapped and stuck at times however is uncertain if she can afford to live on her own. Also concerned if she lives with her friend it could impact their relationship. Baseline symptom tracker scores are 2/5 for suicidal ideations and today she was 3/5 for suicidal thoughts and 0/5 for intent. She reports that she has passive thoughts of which have been fairly consistent for several months to years. Sometimes things are so overwhelming I just don't want to be alive. She has been ruminating on her past relationships, current functioning, and current housing situation and reports increased hopelessness this week. She denies active suicidal ideations, plan, or intent. She is able to verbalize to therapist that she can keep herself safe. No hx of attempts. Protective factors are her family and dog. Future-oriented with several family and social plans this weekend. These passive thoughts typically last minutes until she can distract herself. Night-time is the worst. Pt states I'm Ok during the day and most nights We problem-solved this and came up with strategies for the weekend to keep safe. She reports that cleaning at night before bed is very comforting and beneficial to her mental health. Only obstacle to this is her ex-bf who may be disturbed by this. We role-payed how to communicate assertively her needs. Reviewed healthy coping skills and supports that she can call if thoughts escalate. Also gave pt crisis number ([id number]). She currently has a rubber wristband with crisis number as well. Her racing intrusive thoughts are long-standing for the past 4-5 years. Risks/Concerns:: refer above Progress Toward Goals/Plan:: Tearful throughout the session. Feelings of being stuck and trapped due to current functioning, housing situation (living with ex), and hopelessness about the future. She has read the entire Intrusive Thoughts Workbook, however struggles to utilize internal coping skills discussed b/c she feels like she is lying to herself. This thought impacts her ability to challenge and reframe negative thoughts as well. Relies heavily on mindfulness, distraction, and calming skills which are helpful. Long discussion on developing new strategies for her remaining weeks in IOP. She is motivated to decrease her cannabis use and has insight that it is not as helpful as it has been previously and may be exacerbating mental health struggles. Plans to write down her current use and bring in on Saturday to discuss plan to decrease use slowly. She also is agreeable to meeting with program psychiatrist next week to discuss her medications further. Also motivated to focus more on her internal coping skills to manage intrusive thoughts and negative automatic thoughts. At the conclusion of the session pt reported being more hopeful and motivated. She denies active SI, plan, or intent. She does not wish to seek any type of voluntary admission and is not reporting any symptoms or thoughts which would suggest imminent harm or need to pursue involuntary admission. Plan is attend IOP on next day Time Stopped:: 01:30
--- NOTE | 2022-12-17 09:05 | BH.SGPN.GN ---
Behaviors/Verbalizations/Mental Status: [] Eye contact is good. Motor activity is appropriate. Appearance is casual. Speech is Appropriate. Mood is depressed/anxious. Affect is flat. Thoughts are linear and logical. No evidence of psychosis. Client Response/Progress/Benefit: [] Pt was an active participant in group discussions. Attentive. Emotion for today was ? anxious?. Reports ? my mind was elsewhere all week?. Increased pain, crying spells, and difficulty with overwhelming thoughts and emotions. Tearful during check-in. She was able to spend time with family, however this provided only a small amount of distraction from her struggles. Benefited from group support, encouragement, and feedback. Will continue in IOP to maintain safety, prevent decompensation, and to stabilize mood. Narrative Note: []
--- NOTE | 2022-12-17 10:15 | BH.SGPN.GN ---
Behaviors/Verbalizations/Mental Status: []Pt alert and oriented, neatly dressed and groomed. Eye contact good. Motor activity appropriate. Speech within normal limits. Affect congruent, mood euthymic. Thoughts linear, logical, no signs of hallucinations or delusions. Client Response/Progress/Benefit: []Pt was an active participant in group discussions. Attentive during psychoeducation. Contributed during interactive discussions in which peers attempted to define crisis. Pt identified several examples of potential crisis. Group also worked together to identify unhealthy responses to crisis which included; isolation, self-harm, overuse of distraction, avoidance, and lashing out. Pt identified personal warning signs as overuse of distractions, crying more frequently, and increasing negative thinking patterns. Benefited from increased understanding of crisis and awareness of personal responses to crisis. Pt will continue IOP tx to reduce intrusive thoughts, improve daily functioning, and increase emotional regulation skills. Narrative Note: []
--- NOTE | 2022-12-17 11:15 | BH.SGPN.GN ---
Behaviors/Verbalizations/Mental Status: []Client alert and oriented, casually dressed and groomed. Eye contact fair. Motor activity appropriate. Speech within normal limits. Affect congruent. Mood depressed and anxious. Thoughts linear, logical, no signs of hallucinations or delusions. Client Response/Progress/Benefit: []Client engaged throughout group session AEB providing contributions to discussion and working within the small groups. Client identified their personal warning signs for crisis and gained further awareness of earliest warning signs. Client created a crisis action plan to help client better manage personal crisis warning signs. Client shared an action plan for their warning sign of less motivation which included: asking for help, rewarding small accomplishments, set small SMART goals, and remind herself she?ll ?feel better if it?s done?. Client appeared to benefit from creating a crisis action plan and increasing self-awareness. Client to continue IOP tx to continue use of healthy coping skills, reduce OCD sx, and prevent decompensation. Narrative Note: []
--- NOTE | 2022-12-19 09:00 | BH.SGPN.GN ---
Behaviors/Verbalizations/Mental Status: []Pt alert and oriented, neatly dressed and groomed. Eye contact good. Motor activity appropriate. Speech within normal limits. Affect congruent to topics being discussed-tearful at times, mood depressed. Thoughts linear, logical, no signs of hallucinations or delusions. Reviewed pt?s symptom tracker, no risk for suicidal ideation, plan, or intent as of 12/19/22 Client Response/Progress/Benefit: []Pt responded well to session, attentive and engaged. Pt reports feeling lost and alone this morning and pt became tearful talking about her stressor. Pt shared she took a shower today which was positive, but it made pt think about how little self-care I am doing. Pt receptive to group encouragement and feedback on thought challenging. Pt's second mental health win is that she went for a long walk with her dog and a friend yesterday. Pt continues to struggle with negative thinking patterns that reinforce depressive symptoms. Pt will continue IOP tx to prevent decompensation, increase emotional regulation skills, and improve daily functioning. Narrative Note: []
--- NOTE | 2022-12-19 10:10 | BH.SGPN.GN ---
Behaviors/Verbalizations/Mental Status: [] Eye contact is good. Motor activity is appropriate. Appearance is casual. Speech is Appropriate. Mood is anxious/depressed. Affect is congruent. Thoughts are linear and logical. No evidence of psychosis. Client Response/Progress/Benefit: [] Pt was an active participant in group discussions. Attentive during psychoeducation on the 4 communication styles (Passive, Passive-Aggressive, Aggressive, and Assertive) and the obstacles to effective communication. Contributed during interactive discussion on the benefits of communicating effectively which included; having one's needs met, helping others get their needs met, building connection with others, decreases stress and uncertainty, improved relationships, increased trust, and increased understanding of others. Worked well in small group in which pt and peers identified the benefits and disadvantages to the different communication styles. Benefited from increased understanding of communication styles and how these can impact effective communication. Will continue in IOP to prevent decompensation, stabilize mood, increase healthy coping skills, and improve functioning to transition back to work. Narrative Note: []
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
--- NOTE | 2022-12-19 15:26 | BH.MDN_ITS ---
Multi-Disciplinary Note - Note 45-min Individual Time Started:: 11:30 Date: 12/19/22 Purpose of session/treatment goals addressed:: To work on goal #1 of pt's tx plan. Eye Contact:: Fair Motor Activity:: Restless Appearance:: Casual Speech:: Tangential Mood:: Anxious, Dysthymic Affect:: Flat - tearful Thoughts:: Racing, Circular, No evidence of hallucinations/delusions noted Staff Interventions:: motivational interviewing, psychoeducation on: - negative core beliefs, CBT techniques, strengths perspective, completed risk assessment / safety planning Client Response:: Pt responded well to session, open to meeting with therapist. Pt shared she had some good moments lately AEB her report of getting out of the house to go for walks and doing well with her goal of getting ready in the mornings. However, pt continues to struggle with significant negative thinking patterns that reinforce anxiety and depression. Through processing barriers and negative thinking patterns, pt acknowledged that her core beliefs of self are ve ry negative. It was identified that one of pt's core beliefs is that she is a burden. Pt shared that she has believed this since she was a child as pt had a learning disability that made class work much harder. Pt stated this impacted pt's willingness to go to college as well as her receptiveness to people being helpful. Pt reports she struggles with accepting acts of kindness or when other people try to accommodate her because of this. Discussion of self-compassion and healing the inner child. Pt was given a handout on five questions to ask your core beliefs to help to catch and combat these thoughts. Risks/Concerns:: Pt admits to having fleeting, passive suicidal ideations daily. Pt denies any intent as pt would not want to do that to her family or to have her family not get my insurance money. Pt does report that she feels she is not getting better and pt has been in the program for six weeks already. Pt and Dr. Alvarez will discuss medication changes. Progress Toward Goals/Plan:: Pt's symptoms are ongoing with mild progress. Pt is demonstrating progress with increasing her self-care and functioning with chores at home. However, pt continues to endorse frequent crying spells, hopelessness, passive SI, negative thinking patterns, and anhedonia. Pt is anxious about returning to work and will be reaching out to her HR about going back to work part-time potentially next week. Pt will continue IOP tx to monitor medication changes, reduce negative thinking patterns, and improve work-related functioning. Time Stopped:: 12:10
--- NOTE | 2022-12-21 10:10 | BH.SGPN.GN ---
Behaviors/Verbalizations/Mental Status: [] Eye contact is good. Motor activity is appropriate. Appearance is casual. Speech is Appropriate. Mood is anxious. Affect is congruent. Thoughts are linear and logical. No evidence of psychosis. Client Response/Progress/Benefit: []Pt engaged participant AEB listening to others, engaging in activity, and providing feedback at times. Attentive during psychoeducation and provided insight into obstacles in the way of mental wellness. Pt stated in current reality she feels like she lives in chaos with her future looking grim. In desired reality she wants to feel more stable, being able to manage stressors as they come, and improved optimism about future. Identified barriers to desired reality include: being quiet, staying in med, negative thoughts, stuck environment, and low motivation. Benefited from taking look at current mental health state and obstacles for progress. Pt to continue IOP to increase healthy coping, challenge distortions, and prevent decompensation. Narrative Note: []
--- NOTE | 2022-12-21 11:15 | BH.SGPN.GN ---
Behaviors/Verbalizations/Mental Status: []Pt alert and oriented, neatly dressed and groomed. Eye contact good. Motor activity appropriate. Speech within normal limits. Affect congruent, mood depressed. Thoughts linear, logical, no signs of hallucinations or delusions. Client Response/Progress/Benefit: []Pt an active participant, encouraging peers and contributed as group brainstormed ideas on how to cope with internal barriers that keep Pts stuck from moving towards goals. Able to identify barriers to desired reality. Worked with group to identify strategies to help overcome barriers. Identified personal barriers to desired reality. Pt wants to work on overcoming the barrier of lack of motivation by creating a schedule and lack of boundaries by asking herself ?what does saying yes say no to?? Benefited from group by identifying obstacles and solutions to desired reality.? Pt to continue IOP tx to increase work-related functioning, improve self-compassion, and reduce negative thinking patterns. Narrative Note: []
--- NOTE | 2022-12-21 15:11 | BH.MDN ---
Multi-Disciplinary Note - Note 60-min Individual Time Started:: 09:00 Date: 12/21/22 Purpose of session/treatment goals addressed:: To combat distorted thought patterns, discuss medication changes, and practice self-compassion. Eye Contact:: Good Motor Activity:: Restless Appearance:: Neat Speech:: Rambling Mood:: Anxious, Depressed Affect:: Congruent Thoughts:: Circular, No evidence of hallucinations/delusions noted Staff Interventions:: thought challenging, motivational interviewing, CBT techniques, mindfulness skills, discharge planning, strengths perspective, goal setting Client Response:: Pt responded well to session, open to meeting with therapist. Pt reports little updates since last session two days ago. Pt was given a new medication on 12/19/22 and pt is receptive to trying this. Pt has not found many medications that help reduce pt's symptoms of depression and intrusive thinking. Pt was given a handout on questions to challenge her negative core beliefs. Pt did not report using it, but pt is receptive to practicing thought challenging in session. Last session pt explored her negative core beliefs and how these have kept pt stuck. Pt's negative core beliefs continue to be reinforced when pt does not set boundaries and when she does not give herself credit. Pt is working on identifying wins and has explored boundaries that could help pt when she returns to work. Also discussed creating a coping skills plan for when pt returns to work. Pt has been consistent with her goals of getting out of the house and walking. Pt also could benefit from joining a support group like [facility] or [facility] which pt was receptive towards. Risks/Concerns:: Pt admits to having fleeting, passive suicidal ideations daily. Pt denies any intent as pt would not want to do that to her family or to have her family not get my insurance money. Pt continues to report hopelessness. Progress Toward Goals/Plan:: minimal changes since session on 12/19/22. Pt's symptoms are ongoing with mild progress. Pt is demonstrating progress with increasing her self-care and functioning with chores at home. However, pt continues to endorse frequent crying spells, hopelessness, passive SI, negative thinking patterns, and anhedonia. Pt is anxious about returning to work, but pt is going to reach out to HR about returning on a part-time schedule. Pt was receptive to medication changes made on 12/19/22 which will hopefully improve pt's mood and reduce depressive symptoms. Pt will continue IOP tx to monitor medication changes, reduce negative thinking patterns, and improve work-related functioning. Time Stopped:: 09:55
--- NOTE | 2022-12-24 09:05 | BH.SGPN.GN ---
Behaviors/Verbalizations/Mental Status: []Pt alert and oriented, neatly dressed and groomed. Eye contact good. Motor activity appropriate. Speech within normal limits. Affect congruent, mood depressed. Thoughts linear, logical, no signs of hallucinations or delusions. Reviewed pt?s symptom tracker, no risk for suicidal ideation, plan, or intent as of 12/24/22 Client Response/Progress/Benefit: []Pt responded well to session, attentive and providing supportive statements. Pt reports feeling distant this morning as pt continues to feel anxious about returning to work and managing her negative thinking. Pt shared she did have mental health wins from the weekend including getting her laundry done and spending the night at a friend's house. Spending time with her friend helped pt come up with a calming strategy to help pt with returning to work. Pt appeared to benefit from peer feedback. Pt will continue IOP tx to promote work-related functioning, reduce ruminations, and improve self-compassion. Narrative Note: []
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
--- NOTE | 2022-12-24 11:15 | BH.SGPN.GN ---
Behaviors/Verbalizations/Mental Status: [] Eye contact is good. Motor activity is appropriate. Appearance is casual. Speech is Appropriate. Mood is euthymic. Affect is congruent. Thoughts are linear and logical. No evidence of psychosis. Client Response/Progress/Benefit: [] Client responded well to session AEB listening attentively to peers, providing some input, as well as taking notes throughout. Group discussed the different types of boundary styles. Reports connecting most with rigid and porous style of boundary setting. Participated in group discussion brainstorming various strategies for improving healthy boundary setting. Client reports wanting to begin using skill of asking for feedback along with utilizing a pros and cons of a boundary to improve overall ability to establish and maintain healthy boundaries. Seemed to benefit from increased awareness of how different boundary styles can impact mental health. Will continue IOP tx to increase overall functioning, increase self-care, and increase healthy thought patterns. Narrative Note: []
--- NOTE | 2022-12-25 09:07 | BH.SGPN.GN ---
Behaviors/Verbalizations/Mental Status: []Pt alert and oriented, casually dressed and groomed. Eye contact poor. Motor activity appropriate. Speech within normal limits. Affect congruent, mood dysthymic and anxious. Thoughts linear, logical, no signs of hallucinations or delusions. Reviewed pt?s symptom tracker, risk for suicidal ideation within usual baseline, denies plan, or intent. Client Response/Progress/Benefit: []Pt responded well to session, attentive and receptive to feedback. Pt shared mental positive as taking time to hangout with a friend the previous date. Reported additional mental positive as challenging herself to use thought challenging and opposite action to reach out to her employer about returning to work. Shared feeling anxious about this as she is uncertain, she will be able to consistently get there on time. Pt did well to identify several strategies to help with getting out of bed in the morning. Current stressor identified as managing her finances as she is currently struggling due to not working. Shared this is an incentive to help motivate her in the mornings. Seemed to benefit from supportive feedback from peers and identifying areas pt deserves credit. Pt will continue IOP tx to continue to promote use of healthy coping skills, promote mood stability, challenge use of distortions, and prevent decompensation. Narrative Note: []
--- NOTE | 2022-12-25 10:10 | BH.SGPN.GN ---
Behaviors/Verbalizations/Mental Status: [] Eye contact is good. Alert and oriented. Motor activity is appropriate. Appearance is casual. grooming is appropriate. Speech is Appropriate. Mood is euthymic. Affect is congruent. Thoughts are linear and logical. No evidence of psychosis or hallucinations. Client Response/Progress/Benefit: [ ] Client active participate AEB listening attentively to others and providing contributions throughout. The group identified impacts of not managing emotions on communication as over assuming, stone-walling, cutting conversations short, and monopolizing the conversation. Client stated discussed how what she intends to say doesn't come out right when emotional. Client engaged in activity, able to manage emotions in the moment. Client processed activity with group members on the challenges that occurred and how they overcame them. Benefited from increased awareness of how stress and emotions can impact one's ability to communicate Client will continue IOP to increase consistency of healthy coping skill application, challenge negative thoughts, and prevent decompensation. Narrative Note: []
--- NOTE | 2022-12-25 11:15 | BH.SGPN.GN ---
Behaviors/Verbalizations/Mental Status: [] Client alert and oriented, casually dressed and groomed. Eye contact good. Motor activity appropriate. Speech within normal limits. Affect congruent, mood euthymic. Thoughts linear, logical, no signs of hallucinations or delusions. Client Response/Progress/Benefit: [] Client able to identify feelings and behaviors for each zone. Client identified coping skills one can use to support self in each zone. Client indicating when in the blue zone she can reach out to positive supports. When in the yellow zone, client identified she can cope by listening to an audio book or music. While in the red zone client identified utilizing grounding skills and physical activity. Benefited from increased education on zones of regulation of stages of alertness for emotions and healthy coping skills to use for each zone. Client will continue IOP tx to prevent decompensation, improve daily functioning, and increase positive coping skills. Narrative Note: []
--- NOTE | 2022-12-26 13:36 | BH.MDN_ITS ---
Multi-Disciplinary Note - Note 60-min Individual Time Started:: 09:20 Date: 12/26/22 Purpose of session/treatment goals addressed:: To discuss discharge plans, return to work plans, and review coping skills to combat distortions and promote mood stability. Eye Contact:: Good Motor Activity:: Restless Appearance:: Neat Speech:: Appropriate Mood:: Anxious, Depressed Affect:: Congruent - tearful at the end of session Thoughts:: Racing, No evidence of hallucinations/delusions noted Staff Interventions:: thought challenging, motivational interviewing, CBT techniques, mindfulness skills - went for a walk with pt for the first few minutes of session to practice grounding., discharge planning, strengths perspective, goal setting, other - reviewed assertive communication skills to help reduce rumination. Client Response:: Pt responded well to session, open to meeting with therapist. Pt shared plan to return to work part-time next week which pt is anxious about. Discussed plan for pt to go back part-time for two weeks and then return to full-time. Pt struggles with giving herself credit and acknowledging any progress, but pt shared today she has been trying to do this more. Pt could give herself credit for sticking with her goal of getting ready each morning and for functioning better at home. Pt also has been taking pictures again which pt has not done for a long time due to depression. Pt reports she is still finding it hard to be kind to herself and her automatic thoughts about the future are still negative. Pt reports plan to attend an online support group through [email or web address] in [facility] to help increase social support. Pt is worried about her father's mental health and pt has shared this resource with him as well. Pt feels her entire family could benefit from [email or web address] as pt's father has history of suicide att empts. Pt was less tearful in session, but pt did cry at the end of session while talking about her intrusive thoughts. Pt able to utilize some self- compassion and encouraged to communicate with her best friend to reduce ruminations. Risks/Concerns:: Pt continues to report passive SI almost daily, but no active SI, plan, or intent. Pt expressed having desires to not be here and has thoughts of wrecking her car, but pt does not want to do that to her family or traumatize anyone. Pt's symptoms are still impacting her daily functioning, mood, and relationships. Future oriented. Progress Toward Goals/Plan:: Pt is showing progress in some areas such as her self-report of getting back into old hobbies, giving herself more credit, and catching more negative thoughts. However, pt's functioning and mood stability are still not where pt wants them to be. Pt is more receptive to going to a support group at [facility] in [facility] and wants to eventually get family counseling with her mother. Pt will continue IOP tx as pt plans to transition back to work part-time next week and could benefit from the structure and routine of IOP. Time Stopped:: 10:15
--- NOTE | 2022-12-28 09:05 | BH.SGPN.GN ---
Behaviors/Verbalizations/Mental Status: []Pt alert and oriented, neatly dressed and groomed. Eye contact good. Motor activity appropriate. Speech within normal limits. Affect congruent, mood anxious. Thoughts linear, logical, no signs of hallucinations or delusions. Reviewed pt?s symptom tracker, no risk for suicidal ideation, plan, or intent as of 12/28/22 Client Response/Progress/Benefit: []Pt responded well to session, attentive and engaged. Pt reports feeling anxious and agitated this morning as pt is anxious about her health and pt feels like I've been avoiding things. Pt has struggled throughout IOP tx with challenging distorted thought patterns and giving herself credit. Pt's mental health wins today include going for a walk and trying out a [facility] support group. Pt was receptive to group feedback on challenging perspective. Pt appeared to benefit from peer feedback and social connection. Pt will continue IOP tx to prevent decompensation, combat distortions, and improve daily functioning. Narrative Note: []
--- NOTE | 2022-12-28 10:15 | BH.SGPN.GN ---
Behaviors/Verbalizations/Mental Status: []Pt alert and oriented, neatly dressed and groomed. Eye contact good. Motor activity appropriate. Speech within normal limits. Affect constricted, mood anxious. Thoughts linear, logical, no signs of hallucinations or delusions. Client Response/Progress/Benefit: []Pt was an active participant in group discussions and activities. Attentive during psychoeducation. Pt engaged during interactive discussion in which the group defined self-care and discussed its benefits. ?Worked with peers in a small group to identify myths related to self-care. Pt identified personal barrier of telling herself it takes too much time which prevents pt from practicing self-care. Pt participated in small groups where they worked to bust these self-care myths. Benefited from increased awareness of self-care, its benefits, and the consequences of not utilizing self-care strategies. Will continue IOP tx to promote work-related functioning, increase mood stability, and combat distortions. Narrative Note: []
--- NOTE | 2022-12-28 13:47 | BH.MDN ---
Multi-Disciplinary Note - Note 60-min Individual Time Started:: 11:30 Date: 12/28/22 Purpose of session/treatment goals addressed:: To identify coping skills, supports, self-care, and problem-solving techniques to help pt with return to work next week. Eye Contact:: Good Motor Activity:: Restless Appearance:: Neat Speech:: Tangential Mood:: Anxious, Irritable Affect:: Congruent Thoughts:: Circular, No evidence of hallucinations/delusions noted Staff Interventions:: thought challenging, motivational interviewing, CBT techniques, discharge planning, strengths perspective, other - completed a return to work coping skills plan Client Response:: Pt responded well to session, open to meeting with therapist. Pt reports she is anxious about work and she has a lot of negative thoughts about returning. Pt stated she has been telling herself that it is going to be horrible which is reinforcing anxiety and depression. Pt is mostly stressed about working with a specific person, otherwise, pt likes her job. Pt receptive to gentle thought challenging and to creating a work coping plan. Pt identified different strategies, coping skills, self-care, and questions to ask herself while at work. Pt also identified what she can do before work and after work to help reduce anxiety and improve mood. Some of the strategies identified included packing her lunch the night before, waking up early to go for a walk, painting her nails, using thought challenging techniques, and being assertive. Pt continues to struggle with utilizing thought challenging techniques without support, but pt is receptive to reviewing the list of things to ask herself to challenge thoughts. Risks/Concerns:: Pt continues to report passive SI almost daily, but no active SI, plan, or intent. Protective factors include her dog and family. Progress Toward Goals/Plan:: No significant changes since session on 12/26/22. Pt plans to return to work on 12/31/22 and was receptive to creating a coping plan for work. Progress noted as pt less tearful than she was when she started the program and she is able to challenge her perspective more often. Pt is still highly anxious about work and has ruminations and negative thinking. Pt is still depressed with lack of motivation, anhedonia, and passive SI but some of her symptoms are resolving. Pt will continue IOP tx to promote work-related functioning, improve mood stability, and reduce negative self-talk. Time Stopped:: 12:30
--- NOTE | 2022-12-31 09:00 | BH.SGPN.GN ---
Behaviors/Verbalizations/Mental Status: []Pt alert and oriented, casually dressed and groomed. Eye contact good. Motor activity appropriate. Speech within normal limits. Affect congruent, mood anxious and dysthymic. Thoughts linear, logical, no signs of hallucinations or delusions. Reviewed pt?s symptom tracker, indicates a 1.5/5, with 5 being severe, for suicidal thoughts and a 0/5 for suicidal intention. This is baseline for client. Does not appear to be imminent risk to harm self or others. Client Response/Progress/Benefit: []Pt responded well to session, attentive and receptive to feedback. Client reported mental positive as going for a walk on Saturday and Saturday. Client stated she took her shoes off during some of her walk to feel the grass on her feet. Client reported another when she win to a [address] on Saturday. Client stated she is unsure if she will return but might give it 1 more chance. Noted her stressor is going back to work today but does think today should be okay because she is working with somebody she gets along with. Stated feeling more anxious about Saturday because the person she works with is somebody that has been historically mean to her. Seemed to benefit from support from peers. Pt will continue IOP tx to challenge distortions, increase consistent use of healthy coping skills, help with transition back to work and prevent decompensation.
--- NOTE | 2022-12-31 10:10 | BH.SGPN.GN ---
Behaviors/Verbalizations/Mental Status: []Pt alert and oriented, casually dressed and groomed. Eye contact good. Motor activity appropriate. Speech within normal limits. Affect congruent, mood anxious. Thoughts linear, logical, no signs of hallucinations or delusions. Client Response/Progress/Benefit: []Pt was an active participant in group discussion and activity. Attentive during psychoeducation. Along with peers, pt was able to identify barriers to taking action. Identified several symptoms and stressors that she feels are holding her back from progress such as negative self-talk, doubt things won?t work out/fear of something going wrong, self-sabotage, and difficulties setting healthy boundaries. Stated these things have kept pt from making healthy changes, having energy to engage in self-care, and reinforced self-sabotage. Pt shared that she wants to begin addressing the impact not setting healthy boundaries has had on her ability to take action. Benefited from increased self-awareness of obstacles. Will continue IOP tx to improve mood management, promote consistent skill application, and further reduce anxiety. Narrative Note: []
--- NOTE | 2022-12-31 11:05 | BH.SGPN.GN ---
Behaviors/Verbalizations/Mental Status: []Pt alert and oriented, neatly dressed and groomed. Eye contact good. Motor activity appropriate. Speech within normal limits. Affect congruent, mood euthymic and anxious. Thoughts linear, logical, no signs of hallucinations or delusions. Client Response/Progress/Benefit: []Pt responded well to session, taking notes and participating in worksheet discussion. Pt connected with the zones of action/change and that making sustainable change comes from stepping out of one?s comfort zone into the learning zone. Pt set a goal to gain control over her lack of boundaries. Pt reported plans to challenge herself to identify the boundaries she needs to set and practice saying ?no? more often. Pt identified using journaling, a boundary worksheet, and talking to her counselor. Appeared to benefit from identifying a small goal to benefit mental health. Will continue IOP tx to increase healthy coping, promote mood stability, and increase self-compassion. Narrative Note: []
--- NOTE | 2023-01-01 09:05 | BH.SGPN.GN ---
Behaviors/Verbalizations/Mental Status: [] Eye contact is good. Motor activity is appropriate. Appearance is casual. Speech is Appropriate. Mood is anxious. Affect is congruent. Thoughts are linear and logical. No evidence of psychosis. Reviewed daily check in sheet and no reports of suicidal ideations or intent. Client Response/Progress/Benefit: [] Pt was an active participant in group discussions. Emotion for today is ?anxious?. Mental health win was returning to work which ?Wasn?t terrible?. She is slowly transitioning back to full-time work this week and next as she ready for discharge from [facility]. She shared her anxious thoughts, negative thoughts about work, and her stressors. Benefited from group support, encouragement, and feedback. Will continue in [facility] to maintain gains and transition back to work. Narrative Note: []
--- NOTE | 2023-01-01 10:20 | BH.SGPN.GN ---
Behaviors/Verbalizations/Mental Status: []Pt alert and oriented, casually dressed and groomed. Eye contact good. Motor activity restless. Speech tangential. Affect congruent, mood anxious. Thoughts linear, logical, no signs of hallucinations or delusions. Client Response/Progress/Benefit: []Pt active participant in group discussions. Active participant in experiential activity. Attentive during psychoeducation. Attentive as peers shared types of social supports and pt identified own as her friends, pet, her parents, nature, IOP, and hobbies. Attentive as group identified mental health benefits of social support. Contributed as peers worked together to identify obstacles to utilizing support. Pt identified personal barriers as depending on certain supports too much, her supports not always being available, and remembering all the support she has. Benefited from increased awareness of mental health benefits of social support and obstacles that prevent one from utilizing support. Will continue IOP tx to promote gains, further improve distress tolerance skills, and help pt transition back to work. ?? Narrative Note: []
--- NOTE | 2023-01-01 14:38 | BH.MDN ---
Multi-Disciplinary Note - Note 45-min Individual Time Started:: 11:50 Date: 01/01/23 Purpose of session/treatment goals addressed:: To address current stressors and discuss strategies to help cope with these stressors. Another goal was to discuss discharge and aftercare. Eye Contact:: Good Motor Activity:: Restless Appearance:: Neat Speech:: Tangential Mood:: Anxious Affect:: Congruent Thoughts:: Circular, No evidence of hallucinations/delusions noted Staff Interventions:: thought challenging, discharge planning, strengths perspective, reviewed DSM-5 Client Response:: Pt responded well to session, open to meeting with therapist. Pt reports she can see progress in some areas such as her ability to challenge her thinking patterns and improved functioning. Pt's negative self-talk is still present and pt understands replacing negative core beliefs will be a long-term process. Pt shared her first day back to work went well, but she is anxious about the rest of the week. Pt stated she followed her coping plan yesterday for her first day and it went well. Pt also identified other things she wants to do that could improve her work environment. 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 Pt verbally processed her relationship stressors as well. Pt stated she set another boundary with her ex-boyfriend and pt plans to set more. Pt can benefit from continuing to work on boundary setting in outpatient therapy. Risks/Concerns:: Pt still reports chronic suicidal ideations that are passive. Pt is future oriented and has protective factors. Progress Toward Goals/Plan:: Pt will discharge from IOP tx this Saturday as pt has met maximum benefit of IOP tx and reports overall symptom reduction. Pt's overall symptoms have decreased by 40% since admission, depression has decreased by 29%, anxiety by 50%, and intrusive thoughts by 67%. Pt plans to follow up with her outpatient psychiatrist, therapist, and local [facility]. Pt can benefit from one more IOP day to reinforce healthy coping skills and process her first week of work. Time Stopped:: 12:35
--- NOTE | 2023-01-04 09:00 | BH.SGPN.GN ---
Behaviors/Verbalizations/Mental Status: [] Eye contact is good. Motor activity is restless. Appearance is casual. Speech is Appropriate. Mood is anxious. Affect is congruent. Thoughts are linear and logical. No evidence of psychosis. Reviewed daily check in sheet and no reports of suicidal ideations or intent. Client Response/Progress/Benefit: [] Pt was an active participant in group discussion. Attentive. Daily symptom tracker notes 10/14 for anxiety and depression. Mental health win was that she continues to transition back to work. Believes that the transition is going as well as can be expected. She is spending time with healthy support and completing self-care daily. She reported some medication issues as her insurance company declined to refill her Effexor b/c the dose was higher than expected. Despite improved mood, decreased crying spells, decreased intrusive thoughts, and overall improved functioning since the increase in her medication her intrusive thoughts regarding the dose being too high has convinced her to decrease her dose. ? I?m going to go back down?. She states that the pharmacist informed her of the decline on behalf of the insurance company. She is set to discharge IOP today and has her aftercare set up. Narrative Note: []
--- NOTE | 2023-01-04 10:06 | BH.SGPN.GN ---
Behaviors/Verbalizations/Mental Status: []Client alert and oriented, casually dressed and groomed. Eye contact good. Motor activity appropriate. Speech within normal limits. Affect congruent, mood anxious, euthymic. Thoughts linear, logical, no signs of hallucinations or delusions. Client Response/Progress/Benefit: []Client receptive to session AEB providing input throughout, listening attentively to others, and taking notes. Attentive throughout psychoeducation on the cognitive triangle and maintenance cycles. Engaged in group discussion reviewing the impact of daily activities and behaviors in either reinforcing unhealthy maintenance cycles and depression or assisting in reducing symptoms (?down? vs ?up? activities). Client identified common ?down? activities they engage in as: napping/staying in bed, not moisturizing after showering, and putting off sleep. Common ?Up? activities they identified to include: driving with the windows down, going in the grass barefoot, hanging out with her mom, and drinking water throughout the day. Appeared to benefit from increased awareness of current behaviors and impact these have on mental health. Pt to d/c from [facility] tx and continue in outpatient counseling given progress made. Narrative Note: []
--- NOTE | 2023-01-04 10:15 | BH.IGGP_ITS ---
Aftercare Plan - Demographics Treatment End Date:: 01/04/23 Psychiatrist:: Yesika Alvarez Psychiatrist Office #:: [phone] [facility]/IOP Therapist:: Gale Vigil Therapist Phone #:: [phone] - Plan Details Progress/Aftercare Plan Details:: Connie has made significant strides since starting IOP as shown by her reduced symptoms, ability to challenge distortions, and overall increased ability to manage emotions and stressors. When Connie started IOP, she was severely depressed, anxious, and tearful. Connie was isolating, struggling with self-care, and was feeling hopeless. Now, Connie is actively using healthy coping skills, practicing self-care, challenging negative thoughts, and using the awareness she has gained to help her break maintenance cycles. Connie contributed to group discussions, offered emotional support to peers, and consistently followed through with her goals. In individual sessions, Connie was receptive to feedback, consistent with homework, and willing to push herself. Connie?s DSM-5 scores for depression decreased by 29%, anxiety by 50%, intrusive thoughts by 67%, and overall scores by 40%. Connie?s biggest progress was beginning to challenge her perspective and give herself credit. Strategies for Success:: 1. Opposite action! continue using this skill when you want to isolate, avoid, run, lash out, or hide. 2. Self-care. Bake, go for walks, relax, take pictures, continue to set boundaries, and SPEAK KINDLY TO YOURSELF. 3. Challenge distortions. Remember that thoughts are thoughts not facts. Challenge yourself to give yourself credit rather than minimizing. 4. Communicate with supports even though it is hard. 5. Continue to stay social, it has helped so much. 6. Self-compassion. You are just as worthy as anyone else of compassion, understanding, and adriano. Never forget that. 7. Remember setbacks happen, but that does not mean progress is erased. 8. Keep up with therapy and advocate for yourself. 9. Keep up with therapy and review your binder. 10. Keep working on small steps! You got this! - Appointments Appointments/Referrals to Other Services:: 1. Jeanna for outpatient counseling every 2. [facility] for psychiatry. 3. [facility] for extra peer support. - Medications Home Medications: Home Medications lamotrigine 150 mg tablet (Lamictal) 150 mg PO DAILY 11/14/22 lithium carbonate 300 mg tablet 150 mg PO DAILY 11/14/22 propranolol 10 mg tablet 20 - 30 mg PO BID PRN PRN Anxiety 11/14/22 venlafaxine 150 mg capsule,extended release 24 hr (Effexor XR) 300 mg PO DAILY 30 days #60 caps 12/19/22
--- NOTE | 2023-01-04 10:35 | BH.DS_ITS ---
Discharge Summary - Demographics Date of Admission:: 11/14/22 Discharge Date: 01/04/23 Presenting Problems at Admission:: Pt is a 27-year-old female with a history of MDD, HILLARY, and PTSD who was referred by her insurance company to [facility] for worsening depression and anxiety. Pt had to go on FMLA from work due to her symptoms interfering with her functioning. At admission, pt reports her symptoms are also impacting her ability to complete ADLs. Pt endorsed a depressed mood, crying spells, poor concentration, issues with memory, lack of motivation, anhedonia, lack of energy, and passive SI. At admission, pt also reported limited benefit from outpatient counseling alone due to hopelessness and worthlessness. Discharge Diagnoses:: Major depressive disorder, recurrent, severe without psychosis F 33.2; Borderline personality disorder; Generalized anxiety disorder; Marijuana use disorder; Alcohol use disorder Reason for Discharge:: Pt has accomplished her treatment goals AEB her reduction of depressive and anxiety symptoms since admission. Pt no longer meets criteria for [facility] level of care and she will transition to outpatient counseling. - Treatment Progress During Treatment & Response: Pt has made significant strides since starting IOP as shown by her reduced symptoms, ability to challenge distortions, and overall increased ability to manage emotions and stressors. When Pt started IOP, she was severely depressed, anxious, and tearful. Pt was isolating, struggling with self-care, and was feeling hopeless. Now, Pt is actively using healthy coping skills, practicing self-care, challenging negative thoughts, and using the awareness she has gained to help her break maintenance cycles. Pt contributed to group discussions, offered emotional support to peers, and con sistently followed through with her goals. In individual sessions, Pt was receptive to feedback, consistent with homework, and willing to push herself. Pt?s DSM-5 scores for depression decreased by 29%, anxiety by 50%, intrusive thoughts by 67%, and overall scores by 40%. Pt?s biggest progress was beginning to challenge her perspective and give herself credit. Issues Still to be Addressed:: Pt was put on 300mg of Effexor on 12/19/22 and this appeared to be helping pt's depressive symptoms and intrusive thoughts. Pt was crying less during sessions, her motivation was improving, and she was able to recognize and challenge negative thoughts more often. Pt is no longer able to take that dose due to insurance, so there is a concern that her symptoms will increase now that pt is back down to a dose of 225mg. Pt can also continue working on identifying negative core beliefs and developing new, more adaptive core beliefs. Additionally, pt can work on increasing self-confidence, ongoing work with boundary setting and assertive communication, and self-care. Discharge Recommendations/Instructions:: Pt will continue seeing Jeanna at [facility] for individual counseling. Pt sees Jeanna next on 01/10/23. Pt will continue seeing [facility] for medication management. Pt also plans to continue going to groups through [facility]. Discharge Handout: Complete Discharge Handout with client on aftercare options and continuity of care.
--- NOTE | 2023-01-04 11:24 | BH.COMM ---
Communication Note - Communication with Client Communication Note: Pt shared this AM that her insurance company is refusing to prescribe Effexor 300mg. According to pt the insurance company said it was beyond recommended dosage. Pt has been on this amount since 12/19/22 which was prescribed by program psychiatrist to help with OCD symptoms. IOP staff has noticed reduction in symptoms and improved functioning. Pt wishes to decrease her Effexor and states that she is going to go back to 225mg starting tonight. Her reasoning is unclear as noted improvement. Offered to reach out to insurance to get authorization for that dose, however again pt wishes to decrease. Spoke with Dr. Mcgovern who had no issues with pt decreasing dose back to 225 mg if she wishes today. Pt has follow-up with her outpatient psychiatrist next week. Pt also requested refill as her Effexor runs out. Nuria agreed with Effexor refill for 30 days no refill. Froilan communicated refill to program nurse.
== END 2023-01-04 12:00 | disposition home or self-care (01) ==
LOC: BHIOP 08:22
PROVIDERS: Referring Provider Psychiatry & Neurology Psychiatry; Visit Provider Psychiatry & Neurology Psychiatry
DX: F33.2 Major depressive disorder, recurrent severe without psychotic features (principal); F41.1 Generalized anxiety disorder; F12.90 Cannabis use, unspecified, uncomplicated; F10.90 Alcohol use, unspecified, uncomplicated; F60.3 Borderline personality disorder
CPT/HCPCS: S9480; 90834; 90837; 90853

== ENCOUNTER → 2022-12-21 | Outpatient (CLI) | payer OTHER, SELFPAY ==
[2022-12-21 14:16] LABS: Thyroid Stim Hormone (TSH) 0.48 uIU/mL (0.358-3.74)
== END | disposition home or self-care (01) ==
PROVIDERS: Referring Provider Psychiatry & Neurology Psychiatry; Visit Provider Psychiatry & Neurology Psychiatry
DX: E55.9 Vitamin D deficiency, unspecified (principal)
CPT/HCPCS: 36415; 82306; 84443

== ENCOUNTER 2023-01-17 08:00 | Outpatient (RCR) | payer OTHER, SELFPAY ==
--- NOTE | 2023-01-17 14:00 | BH.SGPN.GN ---
Behaviors/Verbalizations/Mental Status: []Pt alert and oriented, casually dressed and groomed. Eye contact good. Motor activity appropriate. Speech within normal limits. Affect congruent, mood anxious and depressed. Thoughts linear, logical, no signs of hallucinations or delusions. Client Response/Progress/Benefit: []Pt responded well to session, Pt reports they see their therapist weekly and they are taking their medication consistently. Pt shared they have been using self-care, the 5-senses, earthing, setting boundaries, and looking at what is in their control to manage current stressors. Pt?s first day of aftercare group. Pt engaged well during the discussion of the components of self-compassion. Pt connected with the benefits of self-compassion and participated in the activity of reframing an example setback using self-compassion Pt worked with peers in small groups to practice reframing using self-compassion and for homework pt will use the same technique for their own experience. Pt appeared to benefit from practicing self-compassion and connecting with peers. Will continue aftercare to promote mood stability and reinforce healthy coping skills. Narrative Note: []
--- NOTE | 2023-02-20 08:27 | BH.DS ---
Discharge Summary Demographics Date of Admission:: 01/17/23 Discharge Date: 02/07/23 Presenting Problems at Admission:: Pt discharged from IOP tx and transitioned to IOP aftercare to maintain gains pt made in IOP and to reinforce healthy coping skills. At admission to IOP aftercare, pt continued to report symptoms of depression and anxiety but of reduced intensity and frequency. Pt also was experiencing stressors with work and issues with fatigue. 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 Pt will continue with outpatient counseling and psychiatry through [facility]. Treatment Progress During Treatment & Response: Pt made progress while in IOP tx, but no additional progress to note for IOP aftercare tx due to pt's early discharge Issues Still to be Addressed:: pt can continue to benefit from working on negative core beliefs, setting boundaries, self-care, and consistently utilizing healthy coping skills. Pt had reported issues with fatigue and increased sleep as well. Additionally, pt can benefit from continuing to reduce her marijuana use. Discharge Recommendations/Instructions:: Pt will continue with outpatient counseling and psychiatry at [facility]. Pt sees Jeanna for individual counseling. Pt also was getting individual with Jyothi AGUDELO for additional mental health support. Discharge Handout
== END 2023-02-07 14:42 | disposition home or self-care (01) ==
LOC: BHOG 08:00
PROVIDERS: Referring Provider Psychiatry & Neurology Psychiatry; Visit Provider Psychiatry & Neurology Psychiatry
DX: F33.2 Major depressive disorder, recurrent severe without psychotic features (principal); F60.3 Borderline personality disorder; F41.1 Generalized anxiety disorder; F10.90 Alcohol use, unspecified, uncomplicated; F12.90 Cannabis use, unspecified, uncomplicated
CPT/HCPCS: 90853